=== PATIENT | male | born 1955 | race Caucasian/White ===

== ENCOUNTER 2018-03-22 07:14 | Day surgery (SDC) | payer OTHER, MEDICARE ==
[2018-03-16 11:51] LABS: MEAN CORPUSCULAR HEMOGLOBIN 27.7 pg (27.0-33.4); MEAN CORPUSCULAR HGB CONC 33.2 g/dL (32.0-36.0); MEAN CORPUSCULAR VOLUME 83 fl (80-97); PLATELET COUNT 342 10^3/uL (150-450); RED BLOOD COUNT 4.32 10^6/uL (4.35-5.55); RED CELL DISTRIBUTION WIDTH 15.3 % (11.5-14.0); WHITE BLOOD COUNT 7.4 10^3/uL (4.0-10.5)
--- NOTE | 2018-03-16 21:57 | EKG REPORT ---
SEVERITY:- ABNORMAL ECG - SINUS RHYTHM NONSPECIFIC INTRAVENTRICULAR CONDUCTION DELAY : Confirmed by: Mahesh Lr 16-Mar-2018 21:56:06
[~2018-03-22 07:14] MED LIST: ACETAMINOPHEN 325 MG TABLET PO PRN; LACTATED RINGERS 1000 ML IV PRN
[2018-03-22] MEDS ORDERED: FENTANYL CITRATE INJ/PF 100 MCG/2 ML AMPUL IV PRN ×3 (08:43)
[2018-03-22] MEDS ORDERED: DIPHENHYDRAMINE HCL 50 MG/ML VIAL IV PRN (08:43)
[2018-03-22] MEDS ORDERED: ONDANSETRON HCL INJ/PF 4 MG/2 ML SDV IV PRN (08:43)
[2018-03-22] MEDS ORDERED: PROMETHAZINE HCL INJ 25 MG/1 ML VIAL IV PRN ×2 (08:43)
[2018-03-22] MEDS ORDERED: MEPERIDINE HCL/PF INJ 25 MG/1 ML DISP.SYRIN IV PRN (08:43)
[2018-03-22] MEDS ORDERED: MIDAZOLAM 2 MG/2 ML INJ ONE (08:47)
[2018-03-22] MEDS ORDERED: LIDOCAINE 2% INJ-PF (20 MG/ML) 10 ML AMPUL ONE (08:47)
[2018-03-22] MEDS ORDERED: PROPOFOL INJ 200 MG/20 ML VIAL IV ONE ×2 (08:48→09:42)
--- NOTE | 2018-03-22 09:44 | Discharge Summary ---
Discharge Summary (SDC) - Discharge Final Diagnosis: Rectal bleeding and internal hemorrhoids Date of Surgery: 03/22/18 Discharge Date: 03/22/18 Condition: Stable Referrals: MILLIE NAGEL MD [Primary Care Provider] - Discharge Diet: As Tolerated Respiratory Treatments at Home: Deep Breathing/Coughing, Incentive Spirometer Discharge Activity: Slowly Increase Activity Home Care Assistance: None Needed Report the Following to Your Physician Immediately: Nausea, Vomiting, Increase in Pain, Fever over 101 Degrees, Unusual Bleeding
--- NOTE | 2018-03-22 09:50 | Operative Report ---
Nonrecallable Operative Report DATE OF SURGERY: 03/22/18 PREOPERATIVE DIAGNOSIS: 1. Rectal bleeding. 2. Personal history of colon polyps POSTOPERATIVE DIAGNOSIS: 1. Rectal bleeding. 2. Moderate size internal hemorrhoids. 3. Personal history of colon polyps OPERATION: Colonoscopy to the cecum SURGEON: LIYAH OAKLEY ANESTHESIA: LMAC TISSUE REMOVED OR ALTERED: None COMPLICATIONS: None apparent ESTIMATED BLOOD LOSS: None PROCEDURE: Drains/implants: None. Procedure in detail: After informed consent was obtained, the patient was laid in the left lateral decubitus position in the operating room. The colonoscope was inserted into the rectum. The scope was passed up the rectum, sigmoid colon , descending colon, across the transverse colon, down the ascending colon, and into the cecum. The ileocecal valve and appendiceal orifice were identified. The scope was then withdrawn, circumferentially noting the mucosa. The prep was fair. Multiple washings and suctionings were required in order to visualize the entirety of the mucosa. This was successful. The scope was withdrawn past the ascending colon, transverse colon, down the descending colon , sigmoid colon, and into the rectum. In the rectum, a retroflexion maneuver was performed noting moderate sized internal hemorrhoids. There was no active bleeding. The scope was straightened, air was suctioned from the rectum, the scope was removed, and the procedure was concluded. Please note that there were no masses, lesions, ulcerations, active bleeding, diverticula, polyps, cancers, or other abnormalities aside from the aforementioned internal hemorrhoids. All sponge, instrument, and needle counts were correct 2. Condition: Stable.
[2018-03-22 12:24] VITALS: BP 128/92
== END 2018-03-22 10:55 | disposition home or self-care (01) ==
LOC: OROUT 07:14
PROVIDERS: ATTEND Surgery
DX: K64.8 Other hemorrhoids (principal); K62.5 Hemorrhage of anus and rectum; Z86.010 Personal history of colon polyps; E03.9 Hypothyroidism, unspecified; N32.81 Overactive bladder; Z79.899 Other long term (current) drug therapy; Z88.5 Allergy status to narcotic agent
CPT/HCPCS: 45378; 93005; 36415; 85027; 93010; J2250; J2704; J3490; 812; G0121